=== PATIENT | female | born 1965 | race Caucasian/White ===

== ENCOUNTER 2019-11-28 08:10 | Outpatient (CLI) | payer OTHER, SELFPAY ==
--- NOTE | 2019-11-28 08:16 | MM_ITS ---
WS: [id number] Bilateral screening digital mammogram, 11/28/2019 Clinical Data: SCREENING Comparison: 01/07/2014 Findings: The breast parenchymal pattern shows heterogeneous density No spiculated masses or clustered calcific ations are seen. There are no secondary signs of carcinoma. There are lymph nodes in both axillae MM/[id number] Impression: 1. Negative bilateral mammogram unchanged. 2. Recommend annual screening mammograms. BIRADS: 1-Negative FOLLOW UP: 1 Year Follow-up The CAD clerk checker was used.
== END 2019-11-28 08:11 | disposition home or self-care (01) ==
LOC: RADSHAW 08:15
PROVIDERS: PCP Nurse Practitioner Family; Visit Provider Nurse Practitioner Family
DX: Z12.31 Encounter for screening mammogram for malignant neoplasm of breast (principal)
CPT/HCPCS: 77067

== ENCOUNTER 2020-05-07 09:30 | Outpatient (CLI) | payer OTHER, SELFPAY ==
--- NOTE | 2020-05-07 09:41 | XR_ITS ---
WS: [id number] Lumbar spine, 3 views, 05/07/2020 Clinical Data: BACK PAIN/SCIATICA Comparison: None. Findings: No compression fractures or subluxation is seen. There is degenerative disc narrowing at L3-L4, L4-L5 and L5-S1. The transverse processes and SI joints are normal. There is subluxation of L4 on L5 of 0.7 cm and L5 on S1 of 0.8 cm. XR/XR lumbar spine 2-3V* [id number] Impression: 1. Degenerative disc narrowing at L3-L4, L4-L5 and L5-S1. 2. Subluxation of L4 and L5 to 0.7 cm and L5 on S1 of 0.8 cm.
== END 2020-05-07 09:31 | disposition home or self-care (01) ==
LOC: RAD 09:38
PROVIDERS: PCP Nurse Practitioner Family; Visit Provider Nurse Practitioner Family
DX: M54.30 Sciatica, unspecified side (principal); S33.140A Subluxation of L4/L5 lumbar vertebra, initial encounter; S33.39XA Dislocation of other parts of lumbar spine and pelvis, initial encounter; X58.XXXA Exposure to other specified factors, initial encounter
CPT/HCPCS: 72100